=== PATIENT | female | born 1970 | race African-American/Black ===

== ENCOUNTER 2020-11-01 23:55 | Emergency (ER) | payer OTHER ==
[~2020-11-01] VITALS: Ht 172.7 cm; Wt 83.9 kg
[2020-11-02] MEDS ORDERED: ONDANSETRON 4MG INJ IVP ONE ×2 (00:30→02:00)
[2020-11-02] MEDS ORDERED: LACTATED RINGERS 1000ML 2,000 ML IV ONE (00:30)
[2020-11-02] MEDS ORDERED: MORPHINE 2 MG SYG IVP ONE ×2 (00:30→02:00)
[2020-11-02] MEDS: PANTOPRAZOLE 40 MG/VIAL IVP SCH ×4 (00:30→04:02)
[2020-11-02] MEDS ORDERED: ONDANSETRON 4MG INJ ONE (00:32)
[2020-11-02] MEDS ORDERED: PANTOPRAZOLE 40 MG/VIAL ONE (00:32)
[2020-11-02] MEDS ORDERED: MORPHINE 2 MG SYG ONE (00:32)
[2020-11-02] MEDS ORDERED: LACTATED RINGERS 1000ML 1,000 ML IV ONE (00:33)
[2020-11-02 00:38] LABS: BASOPHILS % (AUTO) 0.1 % (0.0-5.0); LYMPHOCYTES % (AUTO) 11.7 % (21.0-51.0); MEAN CORPUSCULAR HEMOGLOBIN 29.9 pg (27.0-33.0); MEAN CORPUSCULAR VOLUME 90.5 fL (79-99); MONOCYTES % (AUTO) 3.8 % (3.0-13.0); PLATELET COUNT (AUTO) 232 K/uL (130-400); RED BLOOD CELL COUNT(AUTO) 4.75 MIL/uL (4.00-5.50); RED CELL DISTRIBUTION WIDTH 11.6 % (11.0-15.5); WHITE BLOOD COUNT (AUTO) 9.4 K/uL (4.8-10.8)
[2020-11-02 00:40] LABS: APPEARANCE,URINE Clear (CLEAR); BILIRUBIN,URINE Negative (NEGATIVE); COLOR,URINE Yellow (YELLOW); GLUCOSE, URINE (UA) TRACE mg/dL (NEGATIVE); KETONES,URINE Negative (NEGATIVE); LEUKOCYTE ESTERASE ,URINE Negative (NEGATIVE); NITRATE,URINE Negative (NEGATIVE); OCCULT BLOOD,URINE Moderate (NEGATIVE); PROTEIN,URINE POS 1+ mg/dL (NEGATIVE); UROBILINOGEN,URINE 0.2 mg/dL (0.2-1.0)
[2020-11-02 00:47] LABS: CARBON DIOXIDE 30 mmol/L (21-32); CHLORIDE 98 mmol/L (101-111); CREATININE 0.7 mg/dL (0.5-1.5); GLOMERULAR FILTR. RATE CALC 95 mL/min (>60); GLUCOSE,RANDOM 122 mg/dL (70-105); SODIUM SERUM 140 mmol/L (136-145); UREA NITROGEN, BLOOD 10 mg/dL (7-18)
[2020-11-02 00:51] LABS: ALANINE AMINOTRANSFERASE 64 U/L (12-78); ALBUMIN 4.9 g/dL (3.5-5.0); ASPARTATE AMINOTRANSFERASE 53 U/L (10-37); CREATINE KINASE, TOTAL 249 U/L (21-232); TOTAL PROTEIN, SERUM 9.3 g/dL (6.0-8.3)
[2020-11-02 00:52] LABS: LIPASE < 40 U/L (114-286)
[2020-11-02 01:01] LABS: BACTERIA,URINE Rare /HPF (None Seen); SQUAMOUS EPITHELIAL CELL,UR 0-2 /HPF (0-2); WBC,URINE 0-1 /HPF (0-1)
[2020-11-02 01:40] VITALS: BP 187/91
[2020-11-02] MEDS ORDERED: IOHEXOL 350 MG/ML 100ML INFUS..BTL IV ONE (02:35)
[2020-11-02] MEDS ORDERED: AZITHROMYCIN 250 MG TABLET PO ONE (04:00)
[2020-11-02] MEDS ORDERED: DICYCLOMINE 20MG (10MG/ML) AMP IM STA (04:01)
[2020-11-02] MEDS ORDERED: AZIT500T2 PO (04:05)
[2020-11-02] MEDS ORDERED: 0.9% NACL 50ML 50 ML IV ONE (04:11)
[2020-11-02] MEDS ORDERED: PROCHLORPERAZINE EDISYLATE 10 MG/2 ML VIAL ONE (04:13)
[2020-11-02] MEDS ORDERED: PROCHLORPERAZINE EDISYLATE 10 MG/2 ML VIAL IV ONE (04:15)
[2020-11-02] MEDS ORDERED: AZITH500IV IV (05:45)
== END 2020-11-02 06:06 | disposition home or self-care (01) ==
LOC: EDH 23:55
DX: A05.9 Bacterial foodborne intoxication, unspecified (principal); E86.0 Dehydration; I10 Essential (primary) hypertension; Z79.899 Other long term (current) drug therapy; Z98.84 Bariatric surgery status
CPT/HCPCS: 36415; 74170; 80053; 81001; 81025; 82550; 83690; 83735; 84484; 85025; 96361; 96372; 96374; 96375; 96376; 99285; C9113; J0500; J0780; J2405 ×2; J7120; Q9967